=== PATIENT | female | born 1970 | race Native Hawaiian/Other Pacific Islander ===

== ENCOUNTER 2018-10-16 09:36 | Outpatient (CLI) | payer OTHER | END 2018-10-16 20:50 | disposition home or self-care (01) | LOC: RAD 09:36 | DX: M79.671 Pain in right foot (principal); M25.561 Pain in right knee ==

== ENCOUNTER 2018-10-23 10:05 | Outpatient (CLI) | payer OTHER | END 2018-10-23 19:42 | disposition home or self-care (01) | LOC: MRI 10:05 | DX: S83.221A Peripheral tear of medial meniscus, current injury, right knee, initial encounter (principal) ==

== ENCOUNTER 2021-01-05 17:07 | Outpatient (CLI) | payer BC | END 2021-01-05 22:32 | disposition home or self-care (01) | LOC: RAD 17:07 → CT 17:07 | PROVIDERS: ATTEND Internal Medicine | DX: R51.9 Headache, unspecified (principal); R42 Dizziness and giddiness ==

== ENCOUNTER 2021-06-08 09:20 | Outpatient (CLI) | payer BC | END 2021-06-08 19:59 | disposition home or self-care (01) | LOC: RAD 09:20 | PROVIDERS: ATTEND Physician Assistant | DX: M25.562 Pain in left knee (principal) ==

== ENCOUNTER 2022-07-05 13:27 | Outpatient (CLI) | payer BC | END 2022-07-05 19:00 | disposition home or self-care (01) | LOC: MRI 13:27 | PROVIDERS: ATTEND Physician Assistant | DX: M54.59 Other low back pain (principal) ==

== ENCOUNTER 2022-08-13 08:17 | Outpatient (CLI) | payer BC | END 2022-08-13 19:16 | disposition home or self-care (01) | LOC: MRI 08:17 | PROVIDERS: ATTEND Physician Assistant | DX: M54.12 Radiculopathy, cervical region (principal) ==